=== PATIENT | male | born 1960 | race Caucasian/White ===

== ENCOUNTER 2019-10-21 11:30 | Emergency (ER) | payer OTHER ==
--- NOTE | 2019-10-21 12:21 | XRAY Report ---
PROCEDURE: Calcaneus RT INDICATIONS: heel pain, achilles inj TECHNIQUE: Two views of the calcaneus were acquired. COMPARISON: None. FINDINGS: Bones: No fractures or dislocations. No suspicious bony lesions. Tiny plantar calcaneal and retroc alcaneal enthesophytes. Soft tissues: No suspicious calcifications. Achilles tendon demonstrates focal thickening approxima tely 6 cm proximal to its insertion onto the posterior calcaneus. There is also suggestion of irregul arity in the contour of the Achilles tendon shadow anteriorly. IMPRESSION: Abnormal appearance of the Achilles tendon shadow suggesting Achilles tendon injury with partial or h igh-grade tendon tear not excluded. Reviewed by: Arjun Diamond MD on 10/21/2019 12:20 PM PDT Approved by: Arjun Diamond MD on 10/21/2019 12:20 PM PDT Station ID: [id number]
--- NOTE | 2019-10-21 12:28 | ED Physician Documentation ---
PD HPI LOWER EXT INJURY - Stated complaint Stated Complaint: R HEEL PAIN - Chief complaint Chief Complaint: Ext Problem - History obtained from History obtained from: Patient - Additional information Additional information: Playing pickle ball just prior to arrival and came down wrong and felt a pop in his Achilles area on the right. Review of Systems Constitutional: reports: Reviewed and negative Eyes: reports: Reviewed and negative Ears: reports: Reviewed and negative Nose: reports: Reviewed and negative PD PAST MEDICAL HISTORY - Present Medications Home Medications: Ambulatory Orders Medication Instructions Recorded Confirmed Knee Scooter 1 unit TD ONCE #1 10/21/19 - Allergies Allergies/Adverse Reactions: Allergies Allergy/AdvReac Type Severity Reaction Status Date / Time No Known Drug Allergies Allergy Verified 10/21/19 12:18 PD ED PE NORMAL - Vitals Vital signs reviewed: Yes - General General: Alert and oriented X 3, No acute distress - HEENT HEENT: PERRL, EOMI - Extremities Extremities: Other (No motion with Gonzalez's test, focally tender over the Achilles tendon. No tenderness of the calcaneus or calf.) - Neuro Neuro: Alert and oriented X 3, Normal speech Results - Vitals Vitals: Vital Signs - 24 hr 10/21/19 11:46 Temperature 36.4 C L Heart Rate 61 Respiratory 16 Rate Blood Pressure 161/81 H O2 Saturation 98 Oxygen O2 Source Room air - Rads (name of study) X-ray of the right calcaneus Radiology: EMP read contemporaneously (Suggestive of Achilles tendon tear without bony abnormality) Procedures - Splint (location) Right leg Splint applied by: Tech Type of splint: Short leg, Posterior, Other (in plantar flexion) Other: Patient tolerated well, No complications, Neurovascular intact, Crutches provided Departure - Departure Disposition: 01 Home, Self Care Clinical Impression: Achilles rupture, right Qualifiers: Encounter type: initial encounter Qualified Code(s): S86.011A - Strain of right Achilles tendon, initial encounter Condition: Good Record reviewed to determine appropriate education?: Yes Instructions: ED Tendon Rupture Achilles Prescriptions: Knee Scooter 1 unit TD ONCE #1 Comments: Follow-up with an orthopedic surgeon in your area within the week, call Wednesday for an appointment. Do not walk on it, keep the splint on, do not get it wet. Return for new or worsening symptoms.
[2019-10-21 12:51] VITALS: BP 158/86
== END 2019-10-21 13:00 | disposition home or self-care (01) ==
LOC: ED 11:30
DX: S86.011A Strain of right Achilles tendon, initial encounter (principal); X50.1XXA Overexertion from prolonged static or awkward postures, initial encounter; Y93.69 Activity, other involving other sports and athletics played as a team or group
CPT/HCPCS: 29515; 99283